=== PATIENT | male | born 1985 | race Caucasian/White ===

== ENCOUNTER 2021-05-04 12:36 | Emergency (ER) | payer BC, SELFPAY ==
[2021-05-04] VITALS (9 sets, daily range): BP systolic 127–148; BP diastolic 59–87; PULSE 48–75; RESP 6–20; TEMP 36.2–36.5; O2SAT 98–100
--- NOTE | 2021-05-04 12:41 | ED.GENADUL_ITS ---
Discharge Plan Disposition Patient Disposition: [facility] Condition: Serious Discharge Details Clinical Impression: Pneumothorax on left, Multiple fractures of ribs of left side, Fracture of left scapula, Fracture of left clavicle, Left pulmonary contusion Primary Care Provider: Yenny,Local ED Provider: Gita Raines Home Meds and New Rx's Prescriptions: No Action No Known Home Meds RF: 0 Discharge Data Discharge Date/Time-TO BE ENTERED AT DEPARTURE: 05/04/21 16:03 Medical Decision Making 35-year-old male presents with left shoulder pain after [place]. Wearing a helmet and denies any LOC, headache, neck pain or dizziness. Tenderness to palpation overlying left lateral clavicle and left lateral and posterior shoulder. There are superficial abrasions to the left shoulder and le ft proximal forearm and left thoracic mid back. No midline spinal tenderness. Lungs clear bilateral. Abdomen soft and nontender. He is neurovascularly intact. There is no evidence of head trauma or other orthopedic injury. Suspect most likely clavicle fracture. Will place in a sling and give Motrin and oxycodone refer for x-rays. Clavicle and scapular fractures noted on x-rays and CT imaging recommended. CT of left upper extremity noted ribs 2 through 5 fractures, moderately displaced s capular fracture, tiny left apical pneumothorax and a left upper lobe pulmonary contusion. Patient has remained hemodynamically stable. Has no complaints of shortness of breath. Will place on 2 L nasal cannula oxygen. Will obtain formal chest and abdomen imaging. Denies any substernal chest trauma or tenderness so do not feel indication for blunt cardiac injury work-up at this time. [facility] transfer consult initiated. Discussed with [facility] trauma Dr. Aguila who accepts patient for transfer to the ED. Full spine precautions and c-collar initiated. Patient remains hemodynamically stable. Oxygen saturation 99% on nasal cannula oxygen. CT chest abdomen and pelvis with thoracic and lumbar recons no other acute findings noted. Labs reviewed and Hgb 13. Medical Records Medical records reviewed: Yes I reviewed the patient's medical records. Imaging Data Radiologic Study: Radiologist's impression: XR SHOULDER LT COMPLETE 2+V XR CLAVICLE LT EXAM: XR CLAVICLE LT CLINICAL HISTORY: s/p fall over handlebars, r/o fx TECHNIQUE: COMPARISON: CR XR SHOULDER LT COMPLETE 2+V from 05/04/2021 CR XR SHOULDER LT COMPLETE 2+V from 05/04/2021 FINDINGS: Two views of the clavicle and four views of the shoulder were obtained. There is a mid clavicular fracture with mild displacement and mild inferior angulation of the distal fracture fragment. There is a suggestion of deformity of the subglenoid scapula which probably represents a scapular fracture. Correlation with CT recommended. No glenohumeral dislocation. IMPRESSION: Clavicular and scapular fractures. CT examination recommended. Results were communicated to the ER. CT UPPER EXTREMITY LT WO EXAM: CT UPPER EXTREMITY LT WO CLINICAL HISTORY: possible scapula fx on xray, r/o scapula fx TECHNIQUE: COMPARISON: No exams were available for comparison FINDINGS: CT examination of the shoulder was performed utilizing multi slice acquisition and multiplanar reconstruction. As suspected on plain films, there is a mildly comminuted moderately displaced fracture of the subglenoid scapula. The glenoid and glenohumeral joint appear intact. AC joint appears intact. Mildly comminuted mildly displaced mid clavicular fracture again noted. There are nondisplaced fractures of ribs 2 through 5 posteriorly. There is a tiny left apical pneumothorax. There is a probable minimal lateral left upper lobe pulmonary contusion. IMPRESSION: Scapular, rib, and clavicular fractures as described above. Minimal left apical pneumothorax. Minimal left upper lobe laterally located pulmonary contusion. CT CHEST/ABD/PEL W TECHNIQUE: CT examination of the chest, abdomen, and pelvis was performed with bolus infusion of 100 cc of Omnipaque 350. COMPARISON: CT CT THORACIC LUMBAR SPINE WO from 05/04/[address] THORACIC LUMBAR SPINE WO from 05/04/2021 FINDINGS: There is no evidence of a thoracic vascular injury. The lungs are clear with the exception of minimal ground-glass opacities in the peripheral left lung consistent with minimal pulmonary contusion.. There is a tiny left apical pneumothorax with no pleural effusion or hemothorax.. No mediastinal hematoma. No adenopathy in the chest. Tracheobronchial tree appears intact. The liver, spleen, and pancreas appear normal. Gallbladder and bile ducts are normal. Adrenals and kidneys are unremarkable. No evidence of urinary tract injury or obstruction. No abdominal or pelvic vascular injury seen. No abdominal or pelvic adenopathy. No significant abdominal wall hernia or hematoma. No evidence of bowel injury. As noted on left shoulder CT obtained earlier, there are minimally displaced fractures of the left 2nd through 5th ribs proximally, left clavicular fracture, and left scapular subglenoid body fracture. No additional fracture seen in the region surveyed. CT reconstructions of thoracic spine and lumbar spine were obtained and show no evidence of fracture. IMPRESSION: Left scapular, clavicular, and 2nd through 5th rib fractures with tiny left apical pneumothorax and minimal left lateral pulmonary contusions involving the upper lobes. No additional significant findings on scanning of the chest abdomen and pelvis or on thoracic and lumbar spine reconstruction. Lab Data Lab results reviewed: Yes I reviewed the patient's lab results. Labs: Laboratory Tests Range/Units 05/04/21 05/04/21 15:10 15:10 WBC (4.4-10.8) 10^3/uL 15.71 H RBC (4.36-5.78) 10^6/uL 4.43 Hgb (13.5-17.5) g/dL 13.1 L Hct (40.0-50.0) % 39.3 L MCV (80-95) fL 88.7 MCH (27.0-33.0) pg 29.6 MCHC (32.0-36.0) % 33.3 RDW (11.8-14.1) % 12.7 Plt Count (130-400) 10^3/uL 213 MPV (8.0-11.0) fL 11.8 H Immature Gran % 0.4 Neutrophils % 87.5 Lymphocytes % 5.2 Monocytes % 6.3 Eosinophils % 0.1 Basophils % 0.5 Nucleated RBC % % 0 Absolute Neutrophils (1.2-6.7) 10^3/uL 13.75 H Absolute Lymphocytes (1.2-3.4) 10^3/uL 0.82 L Absolute Monocytes (0.1-0.8) 10^3/uL 0.99 H Absolute Eosinophils (0.0-0.7) 10^3/uL 0.02 Absolute Basophils (0.0-0.2) 10^3/uL 0.08 Sodium (136-145) mmol/L 140 Potassium (3.5-5.1) mmol/L 5.1 Chloride (98-107) mmol/L 104 Carbon Dioxide (21.0-32.0) mmol/L 28.9 Anion Gap (3-11) mmol/L 7.1 BUN (7-18) mg/dL 22 H Creatinine (0.70-1.30) mg/dL 0.9 Estimated GFR/1.73 m2 (mL/min/1.73m2) >= 60.00 Glucose (74-106) mg/dL 107 H Calcium (8.5-10.1) mg/dL 9.0 Total Bilirubin (0.2-1.0) mg/dL 0.5 AST (15-37) U/L 51 H ALT (16-63) U/L 30 Alkaline Phosphatase (46-116) U/L 50 Total Protein (6.4-8.2) g/dL 7.1 Albumin (3.4-5.0) g/dL 4.3 HPI General Mode of arrival: ambulatory . Date/Time Provider Initiated Documentation: 05/04/21 12:41 . Limitations to Documentation: no limitations . Information obtained by: patient . HPI Narrative: Patient is a 35-year-old male who presents with left shoulder pain after fall over his handlebars at [facility] prior to arrival. Patient states he was wearing a helmet when he fell over the handlebars landing on his left shoulder. He states he may have hit his head but denies any headache, LOC, vomiting, dizziness or neck pain. He states his helmet is intact. He is mainly complaining of pain in his left upper shoulder. He denies any difficulty breathing, abdominal pain or chest pain. He has not taken medication for pain. Tetanus up-to-date. Related Data Home Medications Medication Instructions Recorded Confirmed Unknown [No Known Home Meds] 05/04/21 05/04/21 Allergies Allergy/AdvReac Type Severity Reaction Status Date / Time No Known Allergies Allergy Unverified 05/04/21 12:46 Review of Systems All systems reviewed & are unremarkable except as noted in HPI and below Constitutional Constitutional: Reports as per HPI, Denies chills and Denies fever(s) Eyes Eyes: Denies blurry vision ENT Ears, Nose, Mouth, and Throat: Denies dizziness, Denies sore throat and Denies throat swelling Cardiovascular Cardiovascular: Denies chest pain and Denies dyspnea Respiratory Respiratory: Denies cough and Denies dyspnea Gastrointestinal Gastrointestinal: Denies abdominal pain, Denies diarrhea and Denies vomiting Genitourinary Genitourinary: Denies hematuria and Denies dysuria Musculoskeletal Musculoskeletal: Denies back pain and Denies numbness Integumentary/Breasts Skin/Breast: Denies lesions and Denies rash Neurologic Neurologic: Denies dizziness, Denies localized weakness and Denies numbness Allergic/Immunologic Allergic/Immunologic: Denies throat swelling [facility] Medical History (Updated 05/04/21 @ 17:30 by Gita Raines DO) No significant past medical history Surgical History (Updated 05/04/21 @ 13:43 by Gita Raines DO) No significant past surgical history Social History Smoking/Tobacco Use Status: Never Smoking risk assessment performed?: Yes Alcohol Intake: current Alcohol Intake frequency: a few times a week Drug use: Never Do you feel safe at home: Yes Do you feel safe in your relationship?: Yes Exam Const General: cooperative, healthy appearing and no acute distress HENMT Head: normal to inspection Face and sinus: normal facial exam Eyes General: appearance normal, both eyes and all related structures Pupils: PERRL EOM: EOM intact bilaterally Neck Neck: normal visual inspection and No submandibular swelling Lymphatic: no lymphadenopathy noted Chest Chest: normal inspection of the chest, normal palpation of entire chest wall, no crepitus and no tenderness Resp Effort & Inspection: normal respiratory effort and able to speak in complete sentences Auscultation: clear to auscultation bilaterally Cardio Rate: regular rate Rhythm: regular rhythm GI Inspection: normal to inspection and no abdominal wall ecchymosis Palpation: soft, not firm, not rigid and nontender Auscultation: normal bowel sounds Back/Spine/Pelvis Cervical Spine: No cervical spinal tenderness Thoracic/Lumbar Spine: thoracic and lumbar spine normal to inspection, No thoracic spinal tenderness and No lumbar spinal tenderness Back/spine/pelvis image: 1. Scattered linear superficial abrasions. Nontender. No crepitus. Skin General skin exam: no rashes or lesions noted Neuro General: patient alert, patient awake and patient oriented x3 Cognition: normal cognition Speech: speech normal Motor: muscle tone normal throughout Sensory Exam: no sensory deficits noted Extrem General: normal to inspection, full ROM, capillary refill normal, no calf tenderness bilaterally and no edema Shoulder/upper arm images: 1. Tenderness, edema overlying L lateral clavicle. No tenting of skin. No crepitus. No open wounds. 2. Superficial abrasions, edema and tenderness on lateral aspect. 3. Superficial abrasions, edema and tenderness to palpation on posterior aspect. 4. Superficial abrasions. No tenderness to palpation overlying right lateral or medial epicondyles or olecranon or radial head. Other: No tenderness to palpation of left forearm, wrist or hand. Left radial and ulnar pulses intact. Psych Appearance: grossly normal Mental Status: mental status grossly normal Speech and Movement: speech and movement normal Affect: normal affect
--- NOTE | 2021-05-04 13:00 | DI.RAD_ITS ---
Exam(s) XR SHOULDER LT COMPLETE 2+V XR CLAVICLE LT EXAM: XR CLAVICLE LT CLINICAL HISTORY: s/p fall over handlebars, r/o fx TECHNIQUE: COMPARISON: CR XR SHOULDER LT COMPLETE 2+V from 05/04/2021 CR XR SHOULDER LT COMPLETE 2+V from 05/04/2021 FINDINGS: Two views of the clavicle and four views of the shoulder were obtained. There is a mid clavicular fr acture with mild displacement and mild inferior angulation of the distal fracture fragment. There is a suggestion of deformity of the subglenoid scapula which probably represents a scapular fracture. Correlation with CT recommended. No glenohumeral dislocation. IMPRESSION: Clavicular and scapular fractures. CT examination recommended. Results were communicated to the ER. RADIATION DOSE DELIVERED: Total DLP
[2021-05-04] MEDS: oxyCODONE 5 MG TAB PO (13:20)
[2021-05-04] MEDS: Ibuprofen 600 MG TAB PO (13:20)
--- NOTE | 2021-05-04 14:00 | DI.CT_ITS ---
Exam(s) CT UPPER EXTREMITY LT WO EXAM: CT UPPER EXTREMITY LT WO CLINICAL HISTORY: possible scapula fx on xray, r/o scapula fx TECHNIQUE: COMPARISON: No exams were available for comparison FINDINGS: CT examination of the shoulder was performed utilizing multi slice acquisition and multiplanar recons truction. As suspected on plain films, there is a mildly comminuted moderately displaced fracture of the subgle noid scapula. The glenoid and glenohumeral joint appear intact. AC joint appears intact. Mildly co mminuted mildly displaced mid clavicular fracture again noted. There are nondisplaced fractures of ribs 2 through 5 posteriorly. There is a tiny left apical pneumothorax. There is a probable minimal lateral left upper lobe pulmona ry contusion. IMPRESSION: Scapular, rib, and clavicular fractures as described above. Minimal left apical pneumothorax. Minimal left upper lobe laterally located pulmonary contusion. RADIATION DOSE DELIVERED: 938.72mGy.cm Total DLP 34.05mGy CTDIvol RADIATION OPTIMIZATION: All CT scans at this facility use at least one of these dose optimization te chniques: automated exposure control; mA and/or kV adjustment per patient size (includes targeted exa ms where dose is matched to clinical indication); or iterative reconstruction.
[2021-05-04] MEDS: Normal Saline Flush 10 ML SYR IVP ×2 (15:00→15:37)
--- NOTE | 2021-05-04 15:00 | DI.CT_ITS ---
Exam(s) CT THORACIC LUMBAR SPINE WO CT CHEST/ABD/PEL W EXAM: CT CHEST/ABD/PEL W TECHNIQUE: CT examination of the chest, abdomen, and pelvis was performed with bolus infusion of 100 cc of Omnipaque 350. COMPARISON: CT CT THORACIC LUMBAR SPINE WO from 05/04/[address] THORACIC LUMBAR SPINE WO from 05/04/2021 FINDINGS: There is no evidence of a thoracic vascular injury. The lungs are clear with the exception of minima l ground-glass opacities in the peripheral left lung consistent with minimal pulmonary contusion.. T here is a tiny left apical pneumothorax with no pleural effusion or hemothorax.. No mediastinal hemat madeline. No adenopathy in the chest. Tracheobronchial tree appears intact. The liver, spleen, and pancreas appear normal. Gallbladder and bile ducts are normal. Adrenals and kidneys are unremarkable. No evidence of urinary tract injury or obstruction. No abdominal or pelvic vascular injury seen. No abdominal or pelvic adenopathy. No significant abdomi nal wall hernia or hematoma. No evidence of bowel injury. As noted on left shoulder CT obtained earlier, there are minimally displaced fractures of the left 2n d through 5th ribs proximally, left clavicular fracture, and left scapular subglenoid body fracture. No additional fracture seen in the region surveyed. CT reconstructions of thoracic spine and lumbar spine were obtained and show no evidence of fracture. IMPRESSION: Left scapular, clavicular, and 2nd through 5th rib fractures with tiny left apical pneumothorax and m inimal left lateral pulmonary contusions involving the upper lobes. No additional significant findin gs on scanning of the chest abdomen and pelvis or on thoracic and lumbar spine reconstruction. RADIATION DOSE DELIVERED: Total DLP Total DLP CTDIvol DATA REPOSITORY: All CT scans at this facility are submitted to the National Radiology Data Registry (NRDR) Dose Index Registry (DIR) with the [employer] ([employer]). RADIATION OPTIMIZATION: All CT scans at this facility use at least one of these dose optimization te chniques: automated exposure control; mA and/or kV adjustment per patient size (includes targeted exa ms where dose is matched to clinical indication); or iterative reconstruction.
[2021-05-04 15:28] LABS: Abs Immature Grans 0.06 10^3/uL (0.0-0.06); Absolute Basophil Count 0.08 10^3/uL (0.0-0.2); Absolute Eosinophil Count 0.02 10^3/uL (0.0-0.7); Absolute Lymphocyte Count 0.82 10^3/uL (1.2-3.4); Absolute Monocyte Count 0.99 10^3/uL (0.1-0.8); Absolute Neutrophil Count 13.75 10^3/uL (1.2-6.7); Basophils % 0.5; Eosinophils % 0.1; HCT 39.3 % (40.0-50.0); HGB 13.1 g/dL (13.5-17.5); Immature Grans % 0.4; Lymphocytes % 5.2; MCH 29.6 pg (27.0-33.0); MCHC 33.3 % (32.0-36.0); MCV 88.7 fL (80-95); MPV 11.8 fL (8.0-11.0); Monocytes % 6.3; Neutrophils % 87.5; Nucleated RBC 0 %; Platelet Count 213 10^3/uL (130-400); RBC 4.43 10^6/uL (4.36-5.78); RDW 12.7 % (11.8-14.1); RDW-SD 41.5 fL; WBC 15.71 10^3/uL (4.4-10.8)
[2021-05-04] MEDS: Omnipaque 350 MG/ML 100 ML BTL IJ (15:35)
[2021-05-04] MEDS: Normal Saline - Diluent 50 ML VIAL IV (15:37)
[2021-05-04] MEDS: Normal Saline 1,000 ML 1000 ML IV (15:46)
[2021-05-04 17:56] LABS: ALT 30 U/L (16-63); AST 51 U/L (15-37); Albumin 4.3 g/dL (3.4-5.0); Alkaline Phosphatase 50 U/L (46-116); Anion Gap 7.1 mmol/L (3-11); BUN 22 mg/dL (7-18); Bilirubin, Total 0.5 mg/dL (0.2-1.0); CO2 28.9 mmol/L (21.0-32.0); CREATININE 0.9 mg/dL (0.70-1.30); Chloride 104 mmol/L (98-107); Glucose 107 mg/dL (74-106); Potassium 5.1 mmol/L (3.5-5.1); Sodium 140 mmol/L (136-145); Total Protein 7.1 g/dL (6.4-8.2)
== END 2021-05-04 16:03 | disposition short-term general hospital (02) ==
PROVIDERS: Emergency Provider Physician Assistant
DX: S27.0XXA Traumatic pneumothorax, initial encounter (principal); S27.321A Contusion of lung, unilateral, initial encounter; S22.42XA Multiple fractures of ribs, left side, initial encounter for closed fracture; S42.022A Displaced fracture of shaft of left clavicle, initial encounter for closed fracture; S42.192A Fracture of other part of scapula, left shoulder, initial encounter for closed fracture; V18.0XXA Pedal cycle driver injured in noncollision transport accident in nontraffic accident, initial encounter
CPT/HCPCS: 36415; 74177; 80053; 96360; 99285; 71260; 72128; 72131; 73000; 73030; 73200; 85025; J3490